=== PATIENT | female | born 1995 | race Two or more races ===

== ENCOUNTER 2019-03-06 14:58 | Emergency (ER) | payer OTHER ==
[~2019-03-06] VITALS: Ht 165.1 cm; Wt 54.4 kg
[2019-03-06 15:04] VITALS: BP 121/77
--- NOTE | 2019-03-06 15:04 | NUR ---
ED Nurse Note: pt brought by RA from work place due to headahce, feeling weak for 1 hr. hx of migrain. no vomiting or nausea. AAO x4. respirations even and non-labored noted. ambulatory with steady gait. will wait for further order.
[2019-03-06] MEDS ORDERED: LORazepam Inj 2mg/ml 1ml IV ONE (15:15)
--- NOTE | 2019-03-06 15:45 | Emergency Room Report ---
History of Present Illness General Chief Complaint: Headache Source: EMS Present Illness HPI 23-year-old female presents to the emergency department complaining of 9 out of 10 in severity pain in the frontal area sudden onset while at work. Patient reports history of sudden headaches in the past but never lasted more than 5 minutes. Patient states that her pain is lasting almost an hour now and she then developed associated weakness in the bilateral lower extremities tingling/ paresthesias in the bilateral hands. Denies nausea vomiting she reports some photophobia denies hyperacusis. Denies fevers, chills, neck pain or stiffness. Pt. reports hx of anxiety in the past as well. she denies fevers, chills, recent illnesses, CP, palpitations, or feeling SOB. Denies difficulty with speech. Allergies: Coded Allergies: No Known Allergies (Unverified , 03/06/19) Patient History Past Medical History: see triage record Past Surgical History: none Pertinent Family History: none Last Menstrual Period: 02/17/2019 Now: No Reviewed Nursing Documentation: PMH: Agreed; PSxH: Agreed Nursing Documentation-PMH Past Medical History: No Stated History Review of Systems All Other Systems: negative except mentioned in HPI Physical Exam Vital Signs Date Time Temp Pulse Resp B/P (MAP) Pulse Ox O2 Delivery O2 Flow Rate FiO2 03/06/19 14:52 98.4 110 18 121/77 (92) 99 Room Air Medical Decision Making PA Attestation Dr. Napoles Is my supervising Physician whom patient management has been discussed with. Diagnostic Impression: Primary Impression: UTI (urinary tract infection) Qualified Codes: N30.01 - Acute cystitis with hematuria Additional Impression: Headache Qualified Codes: R51 - Headache ER Course 23-year-old female presents to the emergency department complaining of 9 out of 10 in severity pain in the frontal area sudden onset while at work. Patient reports history of sudden headaches in the past but never lasted more than 5 minutes. Patient states that her pain is lasting almost an hour now and she then developed associated weakness in the bilateral lower extremities tingling/ paresthesias in the bilateral hands. Denies nausea vomiting she reports some photophobia denies hyperacusis. Denies fevers, chills, neck pain or stiffness. Pt. reports hx of anxiety in the past as well. she denies fevers, chills, recent illnesses, CP, palpitations, or feeling SOB. Denies difficulty with speech. Ddx considered but are not limited to migraine, UTI SAH, Pseudomotor Cerebri, Mass lesion, Cluster NGO, Tension NGO, Post lumbar puncture NGO. Vital signs: are WNL, pt. is afebrile H&PE are most consistent with migraine headache ORDERS: - UA: Nitrite positive -urine hcg: negative -CT head: WNL ED INTERVENTIONS: - 1 liter NS -Reglan 10mg PO - Fioricet PO -macrobid PO --Upon reassessment pt. reports improvement of her symptoms. DISCHARGE: At this time pt. is stable for d/c to home. Will provide printed patient care instructions, and any necessary prescriptions. Care plan and follow up instructions have been discussed with the patient prior to discharge. Labs Test 03/06/19 15:14 Urine Color Pale yellow Urine Appearance Slightly cloudy Urine pH 6.5 (4.5-8.0) Urine Specific [place] 1.010 (1.005-1.035) Urine Protein Negative (NEGATIVE) Urine Glucose (UA) Negative (NEGATIVE) Urine Ketones 2+ (NEGATIVE) Urine Blood 1+ (NEGATIVE) Urine Nitrite Positive (NEGATIVE) Urine Bilirubin Negative (NEGATIVE) Urine Urobilinogen Normal MG/DL (0.0-1.0) Urine Leukocyte Esterase 1+ (NEGATIVE) CT/MRI/US Diagnostic Results CT/MRI/US Diagnostic Results : Imaging Test Ordered: CT HEAD Impression " No evidence of acute fracture, hemorrhage, or intracranial process" per official radiology report- Please see report for specific details. Last Vital Signs Date Time Temp Pulse Resp B/P (MAP) Pulse Ox O2 Delivery O2 Flow Rate FiO2 03/06/19 15:04 98.4 110 18 121/77 99 Room Air Status: improved Disposition: HOME, SELF-CARE Condition: Stable Scripts Acetamin/Butalbital/Caffeine* (FIORICET*) 1 Ea Tab 1 TAB ORAL Q6H, #15 TAB 0 Refills Prov: Latrice Jara 03/06/19 Nitrofurantoin Monohyd/M-Cryst* (MACROBID 100 MG*) 100 Mg Capsule 100 MG ORAL EVERY 12 HOURS for 5 Days, #10 CAP Prov: Latrice Jara 03/06/19 Departure Forms: Return to Work Return to Work Date: Mar 10, 2019 Work Restrictions: No Heavy Lifting Return to Full Activity: Mar 10, 2019 Patient Instructions: Migraine Headache, Urinary Tract Infection, [id number] Additional Instructions: Take medications as directed. Follow up with a Primary Care Provider in 3-5 days For a referral to have NEUROLOGIST Evaluation, even if your symptoms have resolved. --Please review list of primary care clinics, if you do not already have a primary care provider Return sooner to ED if new symptoms occur, or current symptoms become worse. - Please note that this Emergency Department Report was dictated using [employer] transcriptionist technology software, occasionally this can lead to erroneous entry secondary to interpretation by the dictation equipment. Latrice Jara Mar 06, 2019 15:45
[2019-03-06 15:55] LABS: BILIRUBIN, URINE NEGATIVE (NEGATIVE); COLOR,URINE PALE YELLOW; GLUCOSE, URINE (UA) NEGATIVE (NEGATIVE); KETONES,URINE 2+ (NEGATIVE); LEUKOCYTE ESTERASE ,URINE 1+ (NEGATIVE); NITRITE,URINE POSITIVE (NEGATIVE); PH,URINE 6.5 (4.5-8.0); PROTEIN,URINE NEGATIVE (NEGATIVE); UROBILINOGEN,URINE NORMAL MG/DL (0.0-1.0)
[2019-03-06 16:07] LABS: APPEARANCE,URINE SLIGHTLY CLOUDY
[2019-03-06 16:25] VITALS: BP 94/57
--- NOTE | 2019-03-06 16:25 | NUR ---
ED Nurse Note: Patient resting in bed with eyes closed.
--- NOTE | 2019-03-06 16:27 | NUR ---
ED Nurse Note: Ivan Pollard at bedside.
--- NOTE | 2019-03-06 16:45 | Diagnostic Imaging Report ---
Indications: Headache Technique: Spiral acquisitions obtained through the brain. Angled axial and coronal 5 x 5 mm slices were reconstructed. Total dose length product 1375.3 mGycm. CTDI vol(s) 70.38 mGy. Dose reduction achieved using automated exposure control Comparison: None. Findings: No acute intracranial hemorrhage or edema, mass effect, nor midline shift. Normal dumont-white differentiation. Intact calvarium. Visualized orbits and sinuses are unremarkable. The mastoids are clear. Impression: Negative The CT scanner at [facility] is accredited by the [employer] and the scans are performed using protocols designed to limit radiation exposure to as low as reasonably achievable to attain images of sufficient resolution adequate for diagnostic evaluation.
[2019-03-06] MEDS ORDERED: Ketorolac 30mg Inj IV ONE (17:15)
[2019-03-06 18:15] VITALS: BP 106/61
[2019-03-06] MEDS ORDERED: NITROFURANTOIN100 M2 ORAL (18:23)
[2019-03-06] MEDS ORDERED: FIORICET1 EA ORAL (18:23)
--- NOTE | 2019-03-06 19:11 | NUR ---
HAND-OFF: Report given to JUSTINE Ball.
[2019-03-06 19:29] VITALS: BP 111/65
[2019-03-06 19:31] VITALS: BP 111/65
--- NOTE | 2019-03-06 19:31 | NUR ---
ER DISCHARGE NOTE: Patient is cleared to be discharged per ERMD, pt is aox4, on room air, with stable vital signs. pt was given dc and prescription instructions, pt was able to verbalize understanding, pt id band and iv site removed without complications. pt is able to ambulate with steady gait with mother. pt took all belongings.
== END 2019-03-06 19:33 | disposition home or self-care (01) ==
LOC: EDBD 14:58 → EMR 15:45
DX: R51 Headache (principal); N30.01 Acute cystitis with hematuria
CPT/HCPCS: 70450; 81003; 81025; 87086; 87181; 96374; 96375; 99284; J1885